=== PATIENT | male | born 1950 | race Caucasian/White ===

== ENCOUNTER 2019-05-07 14:31 | Emergency (ER) | payer MEDICARE, OTHER ==
--- NOTE | 2019-05-07 16:18 | ED Physician Documentation ---
History of Present Illness - Stated complaint Stated Complaint: SORE THROAT/EAR - Chief complaint Chief Complaint: Heent - History obtained from History obtained from: Patient - History of Present Illness Timing: Yesterday - Additonal information Additional information: Patient is a previously healthy 69-year-old male presenting with upper respiratory symptoms over the past day or so while traveling. Patient reports sore throat that improved with Aleve. Patient also complains of left ear pressure, but denies significant sinus pain or pressure, rhinorrhea, difficulty breathing, productive cough, fever or other complaints. No other improving or worsening factors noted. Review of Systems Constitutional: denies: Fever Ears: reports: Ear pain. denies: Drainage/discharge Nose: denies: Rhinorrhea / runny nose, Congestion Throat: reports: Sore throat Respiratory: denies: Dyspnea, Cough PD PAST MEDICAL HISTORY - Past Medical History Past Medical History: Yes Neuro: Migraines - Past Surgical History Past Surgical History: No - Allergies Allergies/Adverse Reactions: Allergies Allergy/AdvReac Type Severity Reaction Status Date / Time No Known Drug Allergies Allergy Verified 05/07/19 14:43 PD ED PE NORMAL - Vitals Vital signs reviewed: Yes - General General: Alert and oriented X 3, No acute distress, Well developed/nourished - HEENT HEENT: Atraumatic, Ears normal, Moist mucous membranes, Pharynx benign, Dentition benign, Other (No evidence of otitis media, otitis externa, mastoiditi s, uvulitis, uvular deviation, tonsillitis, pharyngitis) - Neck Neck: Supple, no meningeal sign - Cardiac Cardiac: RRR, No murmur - Respiratory Respiratory: No respiratory distress, Clear bilaterally - Derm Derm: Normal color, Warm and dry, No rash - Extremities Extremities: No deformity - Neuro Neuro: Alert and oriented X 3, No motor deficit, No sensory deficit - Psych Psych: Normal mood, Normal affect Results - Vitals Vitals: Vital Signs - 24 hr 05/07/19 14:41 Temperature 36.6 C Heart Rate 85 Respiratory 20 Rate Blood Pressure 145/87 H O2 Saturation 96 Oxygen O2 Source Room air PD MEDICAL DECISION MAKING - ED course Complexity details: considered differential, d/w patient, d/w family ED course: Patient presenting with likely viral URI. Do not find evidence of pharyngitis, tonsillitis, peritonsillar abscess or have concern for retropharyngeal abscess. Low suspicion for pneumonia or sinusitis. Do not find evidence of mastoiditis, otitis media, otitis externa. No signs of systemic illness or other complication. Discussed supportive cares, return precautions, and follow-up. Patient voiced understanding and is comfortable with discharge plan. Departure - Departure Disposition: 01 Home, Self Care Clinical Impression: Viral URI Condition: Good Instructions: ED Viral Syndrome Follow-Up: your,doctor [Other] - Within 3 Days Comments: Recommend supportive cares including vitamins, supplements, healthy diet, hydration, and rest. Please follow-up with your primary care physician in next to 3 days and return to ED sooner if experience worsening symptoms or other concerns.
[2019-05-07 16:41] VITALS: BP 139/80
== END 2019-05-07 16:40 | disposition home or self-care (01) ==
LOC: ED 14:31
DX: J06.9 Acute upper respiratory infection, unspecified (principal)
CPT/HCPCS: 87070; 87430; 99282; 99283